=== PATIENT | male | born 1975 | race Caucasian/White ===

== ENCOUNTER → 2019-08-09 | Outpatient (CLI) | payer OTHER ==
[2019-08-09 10:42] LABS: HCT 49.8 % (39.0-53.0); HGB 16.5 gm/dL (13.0-17.5); MCH 31.6 pg (25.0-35.0); MCHC 33.1 g/dL (31.0-37.0); MCV 95.3 fL (80.0-100.0); Mean Platelet Volume 9.8; Platelet Count 208 k/uL (150-450); RBC 5.23 m/uL (4.30-5.90); RDW 11.9 % (11.5-15.5)
[2019-08-09 12:03] LABS: Erythrocyte Sedimentation Rate 2 mm/hr (0-15)
[2019-08-09 18:05] LABS: Gliadin AB IgA, Deaminated NEGATIVE (NEGATIVE); Gliadin AB IgA, Unit 2.1 U/mL; Gliadin AB IgG, Deaminated NEGATIVE (NEGATIVE)
[2019-08-09 18:14] LABS: ALT 94 U/L (10-49); AST 44 U/L (14-35); African American GFR (CKD) 78.5 (60.0-200.0); Albumin/Globulin Ratio 2.22 (1.60-3.17); Alkaline Phosphatase 54 U/L (41-126); BUN/Creat Ratio 12.31 Ratio (12.00-20.00); Carbon Dioxide 27.8 mmol/L (21.6-31.8); Chloride 102 mmol/L (96-109); Globulin 2.3 g/dL (1.6-3.3); Glucose 97 mg/dL (70-110); Non-African American GFR(CKD) 67.8 (60.0-200.0); Potassium 4.9 mmol/L (3.5-5.5); Sodium 140 mmol/L (135-145); Total Bilirubin 0.6 mg/dL (0.3-1.2); Total Protein 7.4 g/dL (6.2-8.2)
[2019-08-10 09:20] LABS: C Reactive Protein <0.4
== END | disposition home or self-care (01) ==
LOC: LABWHC1 10:06
PROVIDERS: ATTEND Nurse Practitioner
DX: R19.4 Change in bowel habit (principal)
CPT/HCPCS: 36415; 80053; 83516; 85027; 85652; 86140

== ENCOUNTER → 2019-10-23 | Outpatient (CLI) | payer OTHER | END | disposition home or self-care (01) | LOC: LABWHC1 10:16 | PROVIDERS: ATTEND Internal Medicine Gastroenterology | DX: Z11.59 Encounter for screening for other viral diseases (principal) | CPT/HCPCS: 87635 ==

== ENCOUNTER 2019-10-27 08:11 | Day surgery (SDC) | payer OTHER ==
[2019-10-25 14:54] VITALS: BMI 31.6
[~2019-10-27 08:11] MED LIST: LACTATED RINGERS 1,000 ML IV SCH; LIDOCAINE 1% (10MG/ML) FOR IV START INTRADERMA PRN
[2019-10-27 08:34] VITALS: TEMP 98.1
[2019-10-27] MEDS ORDERED: PROPOFOL 10 MG/ML 20 ML VIAL IV ONE (09:08)
--- NOTE | 2019-10-27 09:27 | P.PCN ---
Date of Procedure: 10/27/19 Procedure(s) Performed: BRIEF HISTORY: Patient is a 44-year-old pleasant white male scheduled for an elective colonoscopy as a part of evaluation of change in bowel habits. His family history of colon cancer diagnosed and grandfather. PROCEDURE PERFORMED: Colonoscopy. PREOPERATIVE DIAGNOSIS: Change in bowel habits. IV sedation per Anesthesia. PROCEDURE: After informed consent was obtained, the patient, was brought into the endoscopy unit. IV sedation was administered by Anesthesia under continuous monitoring. Digital rectal examination was normal. Initially the Olympus CF-160 flexible video colonoscope was then inserted in the rectum, gradually advanced into the cecum without any difficulty. Careful examination was performed as the scope was gradually being withdrawn. Ileocecal valve and the appendiceal orifice were visualized and appeared normal. Prep was excellent. Mucosa of the cecum, ascending colon, transverse colon, descending colon, sigmoid colon, and rectum appeared normal. Retroflexion was performed in the rectum and no lesions were seen. The patient tolerated the procedure well. IMPRESSION: Normal-appearing colon from rectum to cecum with no evidence of colorectal neoplasia. RECOMMENDATIONS: Findings of this examination were discussed with the patient as well as his family. He was advised to have a repeat screening colonoscopy in 10 years..
[2019-10-27 09:35] VITALS: PULSE 58; RESP 16
[2019-10-27 10:03] VITALS: BP 116/75
== END 2019-10-27 10:04 | disposition home or self-care (01) ==
LOC: ORWHC2ENDO 08:11
PROVIDERS: ATTEND Internal Medicine Gastroenterology
DX: R19.4 Change in bowel habit (principal); Z80.0 Family history of malignant neoplasm of digestive organs; Z90.49 Acquired absence of other specified parts of digestive tract; Z98.890 Other specified postprocedural states
CPT/HCPCS: 45378; J2704

== ENCOUNTER → 2019-12-12 | Outpatient (CLI) | payer OTHER ==
--- NOTE | 2019-12-12 08:55 | US ---
EXAMINATION TYPE: US liver DATE OF EXAM: 12/12/2019 COMPARISON: NONE CLINICAL HISTORY: R74.8 ABN LFTS. abnormal labs, no surgeries EXAM MEASUREMENTS: Liver Length: 19.6 cm Gallbladder Wall: 0.1 cm CBD: 0.3 cm Right Kidney: 11.6 x 5.3 x 5.7 cm Pancreas: Tail obscured by overlying bowel gas Liver: Appears enlarged and coarse. Gallbladder: wnl Evidence for sonographic Looney's sign: neg CBD: wnl Right Kidney: No hydronephrosis or masses seen IMPRESSION: 1. Hepatomegaly
[2019-12-12 09:34] LABS: Albumin 4.8 g/dL (3.5-5.0); Bilirubin, Delta 0.1 mg/dL (0.0-0.2); Bilirubin,Unconjugated 0.5 mg/dL (0.0-1.1); Total Bilirubin 0.6 mg/dL (0.2-1.3); Total Protein 7.4 g/dL (6.3-8.2)
== END | disposition home or self-care (01) ==
LOC: RADUSWWP 08:16
PROVIDERS: ATTEND Internal Medicine Gastroenterology
DX: R16.0 Hepatomegaly, not elsewhere classified (principal); R74.8 Abnormal levels of other serum enzymes
CPT/HCPCS: 36415; 76705; 80061; 80076

== ENCOUNTER 2021-03-28 08:19 | Emergency (ER) | payer OTHER ==
[2021-03-28 08:25] VITALS: RESP 18; TEMP 97.8
[2021-03-28] MEDS ORDERED: KETOROLAC 15 MG/ML 1 ML VIAL IM STA (08:39)
--- NOTE | 2021-03-28 08:43 | ED ---
General Adult HPI - General Chief complaint: Extremity Injury, Lower Stated complaint: Rt Knee Pain Time Seen by Provider: 03/28/21 08:32 Source: patient, RN notes reviewed Mode of arrival: wheelchair Limitations: no limitations - History of Present Illness Initial comments: Patient is a pleasant 45-year-old male presenting to the emergency Department w ith right knee pain. Patient does have history of ACL injury and surgical As well as meniscal injury and surgical repair years ago. Yesterday patient was stretching and felt sudden discomfort of his right inner knee. Discomfort is persistent but greatly increased with movement. No swelling. No color change. No fever. - Related Data Home Medications Medication Instructions Recorded Confirmed Ibuprofen [Motrin Ib] 600 mg PO DIRECTED PRN 10/25/19 10/27/19 Multivitamins, Thera [Multivitamin 1 tab PO DAILY 10/25/19 10/25/19 (formulary)] Previous Rx's Medication Instructions Recorded Ibuprofen [Motrin] 600 mg PO Q6HR PRN #20 tab 03/28/21 Allergies Allergy/AdvReac Type Severity Reaction Status Date / Time No Known Allergies Allergy Verified 03/28/21 08:21 Review of Systems ROS Statement: Those systems with pertinent positive or pertinent negative responses have been documented in the HPI. ROS Other: All systems not noted in ROS Statement are negative. Constitutional: Denies: fever Eyes: Denies: eye pain ENT: Denies: ear pain Respiratory: Denies: cough Cardiovascular: Denies: chest pain Endocrine: Denies: fatigue Gastrointestinal: Denies: abdominal pain Genitourinary: Denies: dysuria Musculoskeletal: Reports: as per HPI Skin: Denies: rash Neurological: Denies: headache Past Medical History History of Any Multi-Drug Resistant Organisms: None Reported Past Surgical History: Appendectomy, Orthopedic Surgery Additional Past Surgical History / Comment(s): R kneex2 Past Psychological History: No Psychological Hx Reported Smoking Status: Never smoker Past Alcohol Use History: Occasional Past Drug Use History: None Reported General Exam Limitations: no limitations General appearance: alert, in no apparent distress Head exam: Present: normocephalic Eye exam: Present: normal appearance Neck exam: Present: normal inspection Respiratory exam: Present: normal lung sounds bilaterally Cardiovascular Exam: Present: regular rate, normal rhythm Expanded Peripheral pulses: 2+: Posterior Tibialis (R) Extremities exam: Present: tenderness (Right medial meniscal region). Absent: calf tenderness Right Knee exam: Present: normal inspection, tenderness (Medial meniscal region), pain/laxity with varus (Pain with varus, no laxity). Absent: full ROM (Pain with range of motion), swelling, abrasion, laceration, ecchymosis, deformity, dislocation, erythema, effusion, posterior draw sign Neurological exam: Present: alert. Absent: motor sensory deficit Psychiatric exam: Present: normal affect, normal mood Skin exam: Present: normal color Course Vital Signs 03/28/21 08:21 Temperature 97.8 F Pulse Rate 74 Respiratory 18 Rate Blood Pressure 125/84 O2 Sat by Pulse 97 Oximetry Medical Decision Making - Medical Decision Making Patient reevaluated and updated - Radiology Data Radiology results: image reviewed (X-ray right knee shows severe ostial arthritis. No fracture. Patellar bursal fluid.) Disposition Clinical Impression: Bursitis, knee Disposition: HOME SELF-CARE Condition: Stable Instructions (If sedation given, give patient instructions): Knee Bursitis (ED), Meniscus Tear (ED) Additional Instructions: Please call orthopedics today for follow-up in the next day or 2 for recheck. Use knee immobilizer. Prescription for Motrin 600 has been sent to pharmacy. Use crutches. Return for increased pain, swelling, redness, worsening or changing symptoms or other concerns. Prescriptions: Ibuprofen [Motrin] 600 mg PO Q6HR PRN #20 tab PRN Reason: Pain Is patient prescribed a controlled substance at d/c from ED?: No Referrals: Delaney Yeager DO [Doctor of Osteopathic Medicine] - 1-2 days Time of Disposition: 09:12
--- NOTE | 2021-03-28 09:02 | XR ---
EXAMINATION TYPE: XR knee complete RT DATE OF EXAM: 03/28/2021 COMPARISON: NONE HISTORY: Pain TECHNIQUE: Three views are submitted. FINDINGS: Severe narrowing of the medial compartment of the knee joint with hypertrophic spurring. Moderate flex nges involving the patellofemoral joint with moderate-sized suprapatellar bursal fluid collection. No acute fracture or dislocation.. Osseous structures are intact. No acute fracture seen. IMPRESSION: 1. No acute fracture. 2. Severe osteoarthritis with moderate-sized suprapatellar bursal fluid collection consider MRI follo w-up..
[2021-03-28 09:51] VITALS: BP 128/84; PULSE 88
== END 2021-03-28 10:14 | disposition home or self-care (01) ==
LOC: EC 08:19
DX: M70.51 Other bursitis of knee, right knee (principal); Z72.89 Other problems related to lifestyle
CPT/HCPCS: 73562; 99283; 96372; L1830; J1885

== ENCOUNTER 2021-05-28 11:39 | Emergency (ER) | payer OTHER ==
[2021-05-28 12:27] VITALS: BP 138/86; PULSE 63; RESP 20; TEMP 98.2
[2021-05-28 12:56] LABS: Basophils # (A) 0.1 k/uL (0-0.2); Basophils % (A) 1 %; Eosinophils # (A) 0.2 k/uL (0-0.7); Eosinophils % (A) 1 %; HCT 50.1 % (39.0-53.0); HGB 17.3 gm/dL (13.0-17.5); Lymphocytes # (A) 2.2 k/uL (1.0-4.8); Lymphocytes % (A) 21 %; MCH 33.8 pg (25.0-35.0); MCHC 34.6 g/dL (31.0-37.0); MCV 97.7 fL (80.0-100.0); Mean Platelet Volume 9.1; Monocytes # (A) 0.7 k/uL (0-1.0); Monocytes % (A) 6 %; Neutrophils # (A) 7.4 k/uL (1.3-7.7); Neutrophils % (A) 69 %; Platelet Count 208 k/uL (150-450); RBC 5.12 m/uL (4.30-5.90); RDW 12.6 % (11.5-15.5); WBC 10.8 k/uL (3.8-10.6)
[2021-05-28 13:06] LABS: INR 0.9 (<1.2); Partial Thromboplastin Time 24.2 sec (22.0-30.0)
[2021-05-28 13:29] LABS: Carbon Dioxide 28 mmol/L (22-30); Chloride 100 mmol/L (98-107); Glucose 102 mg/dL (74-99); Potassium 4.9 mmol/L (3.5-5.1); Sodium 137 mmol/L (137-145)
[2021-05-28 13:30] LABS: ALT 217 U/L (4-49); AST 96 U/L (17-59); African American GFR (CKD) >90 (>60 ml/min/1.73 sqM); Albumin 4.9 g/dL (3.5-5.0); Alkaline Phosphatase 60 U/L (38-126); Anion Gap 9 mmol/L; Blood Urea Nitrogen 15 mg/dL (9-20); Calcium 10.1 mg/dL (8.4-10.2); Non-African American GFR(CKD) 82 (>60 ml/min/1.73 sqM); Total Bilirubin 0.8 mg/dL (0.2-1.3); Total Protein 8.1 g/dL (6.3-8.2)
--- NOTE | 2021-05-28 15:08 | ED ---
General Adult HPI - General Chief complaint: Chest Pain Stated complaint: Chest pain/DESMOND Time Seen by Provider: 05/28/21 14:25 Source: patient Mode of arrival: ambulatory Limitations: no limitations - History of Present Illness Initial comments: 35-year-old male presents to the emergency room for a chief complaint of shortness of breath. Patient states for the past week or so he feels like he is breathing heavy. He states that sometimes he feels a pressure on his chest but that he does not have any pain. patient states that he did notice the shortness of breath worsened during intercourse once but otherwise does not seem to worsen with exertion. States when he tries to go to sleep at night breathing gets heavier. pt did have knee surgery about a month ago. Patient denies any diaphoresis nausea. Nonsmoker. No cardiac history or history of cholesterol or hypertension. Patient has no other complaints at this time including chest pain, abdominal pain, nausea or vomiting, headache, or visual changes. - Related Data Home Medications Medication Instructions Recorded Confirmed Multivitamins, Thera [Multivitamin 1 tab PO DAILY 10/25/19 05/28/21 (formulary)] Allergies Allergy/AdvReac Type Severity Reaction Status Date / Time No Known Allergies Allergy Verified 05/28/21 15:18 Review of Systems ROS Statement: Those systems with pertinent positive or pertinent negative responses have been documented in the HPI. ROS Other: All systems not noted in ROS Statement are negative. Past Medical History Past Medical History: No Reported History History of Any Multi-Drug Resistant Organisms: None Reported Past Surgical History: Appendectomy, Joint Replacement, Orthopedic Surgery Additional Past Surgical History / Comment(s): R kneex2 Past Psychological History: No Psychological Hx Reported Smoking Status: Never smoker Past Alcohol Use History: None Reported Past Drug Use History: None Reported General Exam Limitations: no limitations General appearance: alert, in no apparent distress Head exam: Present: atraumatic Eye exam: Present: normal appearance, PERRL, EOMI. Absent: scleral icterus, conjunctival injection ENT exam: Present: normal exam, mucous membranes moist Neck exam: Present: normal inspection, full ROM. Absent: tenderness Respiratory exam: Present: normal lung sounds bilaterally. Absent: respiratory distress, wheezes Cardiovascular Exam: Present: regular rate, normal rhythm, normal heart sounds Course Vital Signs 05/28/21 12:23 Temperature 98.2 F Pulse Rate 63 Respiratory 20 Rate Blood Pressure 138/86 O2 Sat by Pulse 100 Oximetry EKG Findings - EKG Comments: EKG Findings:: NSR, vent rate 65, pr int 148, qtc 434 Medical Decision Making - Medical Decision Making Vitals are stable. CBC CMP unremarkable. Troponin is negative. D-dimer is normal. Coronavirus not detected. EKG nonischemic, he does have inverted T waves in lead III however no chest pain and no previous to compare to chest x- ray shows no acute process. He will follow up for nodule. Discussed results with patient. I did recommend admission for cardiology consultation however he much prefers discharge home. We did do repeat troponin and recommended close follow-up with his primary care doctor for possible cardiology referral. HEART score 3. He is aware he needs to return here for any worsening symptoms. - Lab Data Result diagrams: 05/28/21 12:41 05/28/21 12:41 Lab Results 05/28/21 05/28/21 05/28/21 Range/Units 12:41 12:41 12:41 WBC 10.8 H (3.8-10.6) k/uL RBC 5.12 (4.30-5.90) m/uL Hgb 17.3 (13.0-17.5) gm/dL Hct 50.1 (39.0-53.0) % MCV 97.7 (80.0-100.0) fL MCH 33.8 (25.0-35.0) pg MCHC 34.6 (31.0-37.0) g/dL RDW 12.6 (11.5-15.5) % Plt Count 208 (150-450) k/uL MPV 9.1 Neutrophils % 69 % Lymphocytes % 21 % Monocytes % 6 % Eosinophils % 1 % Basophils % 1 % Neutrophils # 7.4 (1.3-7.7) k/uL Lymphocytes # 2.2 (1.0-4.8) k/uL Monocytes # 0.7 (0-1.0) k/uL Eosinophils # 0.2 (0-0.7) k/uL Basophils # 0.1 (0-0.2) k/uL PT 10.0 (9.0-12.0) sec INR 0.9 (<1.2) APTT 24.2 (22.0-30.0) sec D-Dimer (<0.60) mg/L FEU Sodium 137 (137-145) mmol/L Potassium 4.9 (3.5-5.1) mmol/L Chloride 100 (98-107) mmol/L Carbon Dioxide 28 (22-30) mmol/L Anion Gap 9 mmol/L BUN 15 (9-20) mg/dL Creatinine 1.10 (0.66-1.25) mg/dL Est GFR (CKD-EPI)AfAm >90 (>60 ml/min/1.73 sqM) Est GFR (CKD-EPI)NonAf 82 (>60 ml/min/1.73 sqM) Glucose 102 H (74-99) mg/dL Calcium 10.1 (8.4-10.2) mg/dL Magnesium 2.0 (1.6-2.3) mg/dL Total Bilirubin 0.8 (0.2-1.3) mg/dL AST 96 H (17-59) U/L ALT 217 H (4-49) U/L Alkaline Phosphatase 60 (38-126) U/L Troponin I (0.000-0.034) ng/mL Total Protein 8.1 (6.3-8.2) g/dL Albumin 4.9 (3.5-5.0) g/dL Coronavirus (PCR) (Not Detectd) 05/28/21 05/28/21 05/28/21 Range/Units 12:41 12:41 14:47 WBC (3.8-10.6) k/uL RBC (4.30-5.90) m/uL Hgb (13.0-17.5) gm/dL Hct (39.0-53.0) % MCV (80.0-100.0) fL MCH (25.0-35.0) pg MCHC (31.0-37.0) g/dL RDW (11.5-15.5) % Plt Count (150-450) k/uL MPV Neutrophils % % Lymphocytes % % Monocytes % % Eosinophils % % Basophils % % Neutrophils # (1.3-7.7) k/uL Lymphocytes # (1.0-4.8) k/uL Monocytes # (0-1.0) k/uL Eosinophils # (0-0.7) k/uL Basophils # (0-0.2) k/uL PT (9.0-12.0) sec INR (<1.2) APTT (22.0-30.0) sec D-Dimer 0.26 (<0.60) mg/L FEU Sodium (137-145) mmol/L Potassium (3.5-5.1) mmol/L Chloride (98-107) mmol/L Carbon Dioxide (22-30) mmol/L Anion Gap mmol/L BUN (9-20) mg/dL Creatinine (0.66-1.25) mg/dL Est GFR (CKD-EPI)AfAm (>60 ml/min/1.73 sqM) Est GFR (CKD-EPI)NonAf (>60 ml/min/1.73 sqM) Glucose (74-99) mg/dL Calcium (8.4-10.2) mg/dL Magnesium (1.6-2.3) mg/dL Total Bilirubin (0.2-1.3) mg/dL AST (17-59) U/L ALT (4-49) U/L Alkaline Phosphatase (38-126) U/L Troponin I <0.012 (0.000-0.034) ng/mL Total Protein (6.3-8.2) g/dL Albumin (3.5-5.0) g/dL Coronavirus (PCR) Not Detected (Not Detectd) Disposition Clinical Impression: Dyspnea Disposition: HOME SELF-CARE Condition: Good Instructions (If sedation given, give patient instructions): Dyspnea (ED) Additional Instructions: Please follow-up with your primary care provider for possible cardiology referral. If you have worsening symptoms return to the emergency room. Is patient prescribed a controlled substance at d/c from ED?: No Referrals: Nonstaff,Physician [Primary Care Provider] - 1-2 days Time of Disposition: 16:23
--- NOTE | 2021-05-28 15:21 | XR ---
EXAMINATION TYPE: XR chest 2V DATE OF EXAM: 05/28/2021 COMPARISON: NONE HISTORY: Cough, difficulty breathing TECHNIQUE: Frontal and lateral views of the chest are obtained. FINDINGS: There is no focal air space opacity, pleural effusion, or pneumothorax seen. Nodular densi ty at the level of anterior first rib is thought likely to represent bone rather than parenchymal saqib g mass however apical lordotic technique chest x-ray could be performed for confirmation. The cardiac silhouette size is within normal limits. The osseous structures are intact. IMPRESSION: No acute cardiopulmonary process is suspected as described above, consider follow-up [facility] x-ray for better evaluation.
== END 2021-05-28 16:56 | disposition home or self-care (01) ==
LOC: EC 11:39
DX: R06.00 Dyspnea, unspecified (principal); Z20.822 Contact with and (suspected) exposure to COVID-19
CPT/HCPCS: 36415; 71046; 80053; 83735; 84484; 85025; 85379; 85610; 85730; 87635; 93005; 99285

== ENCOUNTER → 2023-05-10 | Outpatient (CLI) | payer OTHER ==
--- NOTE | 2023-05-10 11:31 | US ---
EXAMINATION TYPE: US gallbladder DATE OF EXAM: 05/10/2023 COMPARISON: NONE CLINICAL INDICATION: Male, 47 years old with history of R10.11 UPPER RIGHT ABD PAIN; RUQ pain, after eating certain foods TECHNIQUE: Multiple sonographic images of the right upper quadrant are obtained. FINDINGS: EXAM MEASUREMENTS: Liver Length: 19.8 cm Gallbladder Wall: 0.3 cm CBD: 0.4 cm Right Kidney: 11.4 x 4.6 x 5.9 cm Pancreas: Obscured by bowel gas Liver: attenuating, enlarged Gallbladder: no evidence of stones Evidence for sonographic Looney's sign: no CBD: wnl Right Kidney: no evidence of hydronephrosis IMPRESSION: 1. No evidence for acute process. 2. Hepatic steatosis.
== END | disposition home or self-care (01) ==
LOC: RADUSWWP 10:52
PROVIDERS: ATTEND Family Medicine
DX: K76.0 Fatty (change of) liver, not elsewhere classified (principal); R10.11 Right upper quadrant pain
CPT/HCPCS: 76705